=== PATIENT | male | born 1980 | race Caucasian/White ===

== ENCOUNTER 2020-04-09 01:05 | Emergency (ER) | payer SELFPAY ==
[~2020-04-09] VITALS: Ht 180.3 cm; Wt 94.8 kg
[2020-04-09 01:12] VITALS: Ht 180.3 cm; Wt 94.8 kg
[2020-04-09 01:51] VITALS: BP 133/95
== END 2020-04-09 01:51 | disposition home or self-care (01) ==
LOC: ED 01:05
DX: H00.11 Chalazion right upper eyelid (principal)